=== PATIENT | male | born 1950 | race African-American/Black ===

== ENCOUNTER 2016-05-18 07:00 | Inpatient (IN) | payer OTHER ==
[~2016-05-18] VITALS: Ht 172.7 cm; Wt 94.3 kg
[2016-06-17] MEDS ORDERED: PANTOPRAZOLE SO40 M1 PO (16:03)
[2016-06-17] MEDS ORDERED: ASPIRIN EC81 M1 PO (16:03)
[2016-06-17] MEDS ORDERED: FOLIC ACID1 M1 PO (16:04)
[2016-06-17] MEDS ORDERED: TOPROL XL50 M1 PO (16:04)
[2016-06-17] MEDS ORDERED: CRESTOR20 M2 PO (16:04)
[2016-06-17] MEDS ORDERED: AMLODIPINE BESY10 M1 PO (16:04)
[2016-06-22] MEDS ORDERED: TRAMADOL HCL50 M1 PO (09:46)
--- NOTE | 2016-06-22 14:03 | Admission Core Measures ---
Admission Meds I reviewed the following Meds: Current Medications Sig/Te Start time Last Medication Dose Stop Time Status Admin Cefazolin Sodium 2,000 MG ONCE 06/22 0000 NR (Kefzol-Ancef Inj) 06/22 2419 Acute Coronary Syndrome Inclusion Criteria ACS Diagnosis No Inpatient Core Measures LDL Reminder: If No, please order W/I first 24hr of stay Congestive Heart Failure Inclusion Criteria CHF Diagnosis No Cerebrovascular accident Inclusion Criteria CVA/TIA Diagnosis No Inpatient Core Measures Bedside Swallow Eval Reminder: If BSE failed, place ST order Antithrombotic Reminder: Order Antithrombotic Medication by end of day 2 Antithrombotic Reminder: Document Reason Antithrombotic Not ordered by end of day 2 AFIB/Flutter Reminder: If Present, add to problem list AFIB/Flutter Reminder: Order Anticoag Medication for pts with AFIB/Flutter Atherosclerosis Reminder: If Present, add to problem list LDL Reminder: If No, please order W/I first 24hr of stay PT Order Reminder: If No, please order Venous thromboembolism Inpatient Core Measures VTE Risk Factors: Age > 40, Obesity, Surgery [facility] prophylaxis d/t No contraindications No VTE Pharm Prophylaxis d/t No contraindications Inclusion Criteria - Per Current guidelines, there needs to be overlap - treatment for the first 5 days of Warfarin therapy. - Parenteral Anticoagulation (IV or SC) needs to be - given along with Warfarin therapy. VTE Diagnosis No VTE Type NONE VTE Confirmed by (Test) NONE Problem List As ranked by this Provider includes Assessment & Plan 1. Status post total left knee replacement HOME MEDS Home Med List Amlodipine Besylate 10 MG TABLET 1 TAB PO DAILY HTN (Reported) Aspirin (Ecotrin*) 81 MG TABLET.DR 1 TAB PO DAILY PROPHO (Reported) Folic Acid 1 MG TABLET 1 TAB PO DAILY PROPHO (Reported) Pantoprazole Sodium 40 MG TABLET.DR 1 TAB PO DAILY GERD (Reported) Rosuvastatin Calcium (Crestor) 20 MG TABLET 1 TAB PO DAILY CHOLESTEROL ( Reported) Tramadol HCl 50 MG TABLET 1 TAB PO TWICE DAILY PRN PAIN (Reported)
[2016-06-22] MEDS ORDERED: MS CONTIN15 M2 PO (14:13)
[2016-06-22] MEDS ORDERED: MIRALAX17 G1 PO (14:13)
[2016-06-22] MEDS ORDERED: ASPIRIN EC325 M2 PO (14:13)
[2016-06-22] MEDS ORDERED: DILAUDID2 M1 PO (14:13)
[2016-06-22] MEDS ORDERED: COLACE100 M1 PO (14:13)
--- NOTE | 2016-06-22 14:38 | Patient Discharge Instructions ---
Discharge Instructions General Discharge Information You were seen/treated for: L knee DJD/osteoarthritis You had these procedures: Left total knee replacement Watch for these problems: Fever greater than 101, excessive drainage from the wound, inability to bear weight on the operative side Call Surgeon to remove: Marion Do not soak the wound: Yes Daily wet to dry dressings: No No bath, but you may shower: Yes Other wound care: Dry dressing change once daily starting postoperative day #2. You may shower as desired. No baths. No ointments of any kind. Ice as needed for comfort. Diet Continue normal diet: Yes Recommended Diet: Heart Healthy Activity Full Activity/No Limits: No Activity Self Limited: Yes Pounds, do NOT lift more than: 5 Activity Limited to: Weight bear as tolerated Other activity limits: Avoid strenuous activity. You may ambulate as desired with rolling walker and progressed per PT recommendations. No driving while using narcotics and until cleared by M.D. Acute Coronary Syndrome Inclusion Criteria At DC or during hospital stay patient has or had the following: ACS DIAGNOSIS No Discharge Core Measures Meds if any: Prescribed or Continued at Discharge Meds if any: NOT Prescribed or Continued at Discharge Congestive Heart Failure Inclusion Criteria At DC or during hospital stay patient has or had the following: CHF DIAGNOSIS No Discharge Core Measures Meds if any: Prescribed or Continued at Discharge Meds if any: NOT Prescribed or Continued at Discharge Cerebrovascular accident Inclusion Criteria At DC or during hospital stay patient has or had the following: CVA/TIA Diagnosis No Discharge Core Measures Meds if any: Prescribed or Continued at Discharge Meds if any: NOT Prescribed or Continued at Discharge Venous thromboembolism Inclusion Criteria VTE Diagnosis No VTE Type NONE VTE Confirmed by (Test) NONE Discharge Core Measures - Per Current guidelines, there needs to be overlap - treatment for the first 5 days of Warfarin therapy. - If discharged on Warfarin prior to 5 days of - overlap therapy, the patient will need to be - assessed for post discharge needs including - *Post discharge parental anticoagulation - *Warfarin and/or parental anticoagulation education - *Follow up date to check INR post discharge At least 5 days overlap therapy as Inpatient No Meds if any: Prescribed or Continued at Discharge Note: Overlap Therapy is Warfarin and Anticoagulant Meds if any: NOT Prescribed or Continued at Discharge
--- NOTE | 2016-06-22 14:43 | Surgical Discharge Summary ---
Visit Information Visit Dates Admission Date: 06/22/16 Discharge Date: 06/23/16 History of Present Illness Chief Complaint: Left knee pain, left knee DJD/osteoarthritis Medical History Cardiovascular: hypertension, hyperlipidemia Gastrointestinal: GERD Psychiatric: depression Isolation History: Standard Surgical History Pertinent Surgical History: knee replacement Review of Systems: See H&P Hospital Course Course Attending Physician: MONIQUE DALEY MD Primary Care Physician: CHUCKY ACEVEDO,German Hospital Course: Patient was admitted to [facility] for elective surgery on 06/22/2016 and underwent left total knee replacement. The patient tolerated the procedure well, without complications. The postoperative course remained uneventful. Pain was well controlled with oral pain medication, tolerated a regular diet, and voiding without difficulty. The patient was evaluated by physical therapy during admission, was deemed stable from a medical standpoint, and was discharged. Allergies: Coded Allergies: ceftriaxone (UNKNOWN 06/22/16) CEFTRIAXONE PER ONQ BALL ORDER SHEET OF 06/22/16 (SJS) acetaminophen (From VICODIN) (ALTERED MENTAL STATUS 06/17/16) hydrocodone (From VICODIN) (ALTERED MENTAL STATUS 06/17/16) oxycodone (From PERCOCET) (ALTERED MENTAL STATUS 06/17/16) Significant Procedures: Left total knee replacement on 06/22/[address] Daley Disposition Summary Disposition Principal Diagnosis: Left knee DJD/osteoarthritis Additional Diagnosis: Hypertension, hyperlipidemia, GERD, depression Discharge Disposition: home health services Discharge Instructions General Discharge Information Code Status: Full Code Patient's Diet: Heart healthy Patient's Activity: Avoid strenuous activity. You may ambulate as desired with rolling walker and progressed per PT recommendations. No driving while using narcotics and until cleared by M.D. Follow-Up Instructions/Appts: Incision: Dry dressing. May shower. No baths. No ointments of any kind. Ice as needed. Bowel regimen: Colace and or MiraLAX Weight-bearing as tolerated Follow-up with Dr. Daley in 6 weeks. Call office for fevers greater than 101.5, excessive drainage or inability to bear weight on operative extremity. Visiting nurse will remove rose. Medications at Discharge Discharge Medications: Stop taking the following medications: Aspirin (Ecotrin*) 81 MG TABLET. ORAL DAILY Continue taking these medications: Pantoprazole Sodium (Pantoprazole Sodium) 40 MG TABLET.DR 1 Tablet ORAL DAILY Comments: NOT GIVEN IN THE HOSPITAL Folic Acid (Folic Acid) 1 MG TABLET 1 Tablet ORAL DAILY Comments: Last Taken:06/23/16 Time:9:03AM Rosuvastatin Calcium (Crestor) 20 MG TABLET 1 Tablet ORAL DAILY Comments: NOT GIVEN IN THE HOSPITAL Amlodipine Besylate (Amlodipine Besylate) 10 MG TABLET 1 Tablet ORAL DAILY Comments: Last Taken:06/23/16 Time:9:04AM Metoprolol Succ XL (Toprol Xl) 50 MG TAB 1 Tablet ORAL DAILY Comments: Last Taken:06/23/16 Time:9:04AM Tramadol HCl (Tramadol HCl) 50 MG TABLET 1 Tablet ORAL Comments: NOT GIVEN IN THE HOSPITAL Start taking the following new medications: Morphine Sulfate (Ms Contin) 15 MG TABLET.ER 1 Tablet ORAL TWICE DAILY Qty = 12 No Refills Comments: NOT GIVEN IN THE HOSPITAL Hydromorphone HCl (Dilaudid) 2 MG TABLET 1-2 Tablet ORAL EVERY 4 HOURS NEEDED as needed for PAIN Qty = 36 No Refills Comments: Last Taken:06/23/16 Time:2:50 PM Docusate Sodium (Colace) 100 MG CAPSULE 1 Capsule ORAL TWICE DAILY Days = 7 No Refills Comments: Last Taken:06/23/16 Time:9:03AM Polyethylene Glycol 3350 (Miralax) 17 GRAM POWD.PACK 1 Packet ORAL DAILY Days = 7 No Refills Comments: Last Taken:06/23/16 Time:9:05AM Aspirin (Ecotrin*) 325 MG TABLET.DR 1 Tablet ORAL TWICE DAILY Days = 28 No Refills Comments: Last Taken:06/23/16 Time:9:03AM
--- NOTE | 2016-06-22 15:49 | RADIOLOGY REPORT ---
EXAMINATION: XR KNEE, LEFT CLINICAL INFORMATION: Status post left knee arthroplasty COMPARISON: None TECHNIQUE: Two views of the left knee. FINDINGS: Status post left knee arthroplasty. Prosthesis is well seated. Surgical drain and skin rose in place. Air within the soft tissues and in the joint space compatible with recent postoperative change. Visualized osseous structures are intact. IMPRESSION: Recent postoperative changes. No acute osseous abnormality.
[2016-06-22 16:31] VITALS: BP 148/90
--- NOTE | 2016-06-22 17:05 | Operative Report ---
Operative/Inv Procedure Report Surgery Date: 06/22/16 Name of Procedure: Left total knee replacement Pre-Operative Diagnosis: Primary left knee DJD Post-Operative Diagnosis: Same Estimated Blood Loss: 50ml to 100ml Surgeon/Bank Accountant: EDI ACEVEDO,MONIQUE Marie Anesthesia: block Operative/Procedure Note Note: Description of Procedure: The patient was taken to the operating room and positively identified. After induction of spinal anesthesia and administration of appropriate pre-operative antibiotics, the patient was positioned supine on the operating room table and all bony prominences were well padded. A well-padded pneumatic tourniquet was placed on the left upper thigh. After performing a surgical timeout, the left lower extremity was prepped and draped in the usual sterile fashion. After exsanguination with Esmarch the tourniquet was inflated to 250mm of mercury. A standard medial parapatellar approach was made to the knee. This was carried down through skin and subcutaneous tissue to the level of the fascia. Meticulous hemostasis was maintained with Bovie electrocautery. The extensor mechanism and patellar retinaculum were opened sharply and the patella was everted. The infrapatellar fat was resected in order to improve exposure. Osteophytes were trimmed from the patella and femoral condyles and the patella was re-everted and tucked laterally. A medial release was performed and the cruciate ligaments were resected. The tibia was then subluxed anteriorly. Utilizing the appropriate extra-medullary guide, the proximal tibia was trimmed perpendicular to the long axis of the tibial shaft. Attention was then turned to the femur. After opening the medullary canal, the distal femoral cut was made in 6 degrees of valgus utilizing the appropriate intra-medullary guide. The extension gap was checked and found to be appropriate. The femur was then sized and the remainder of the femoral cuts were made with a size 5 4-in-1 femoral cutting guide. The flexion gap was checked and found to be symmetric and appropriate. The knee was then trialed with a size 5 femoral component, a size 6 tibial component and a size 11 mm polyethylene insert. The patella was trimmed to accept an A 38 patella. This yielded excellent range of motion, stability and patellar tracking. All trial components were removed and the knee was copiously irrigated with sterile saline. All components were cemented into place with [place] Simplex cement. All the components were of the [employer]arit[employer] Triathlon knee system of the above stated sizes. The knee was again irrigated after cementation. The extensor mechanism and patellar retinaculum were repaired using interrupted #1 vicryl suture. The skin was re-approximated with 2-0 vicryl and closed with rose. A sterile dressing was applied, the tourniquet was deflated, the patient was awakened and taken to the recovery room in satisfactory condition.
--- NOTE | 2016-06-22 17:07 | PN- Orthopedic ---
Subjective Subjective: Postop check Pt is now POD # 0 s/p L TKR. He has no major complaints at this time. Pain is well controlled. He is tolerating sips. No nausea or vomiting. Patient reports some residual left lower extremity numbness. He also reported a dull substernal ache, that has almost completely resolved within 5 minutes upon placement into a more upright position. Objective Vital Signs and I&Os BP 122/68, HR 62, 96%RA, R 18, temp 97.0 Physical Exam: Gen.: Patient is awake and alert. No acute distress. Cardiac: Regular Pulmonary: Lungs are clear bilaterally. Extremities: Left lower extremity dressing is clean, dry, and intact. Despite reports of numbness, lower extremity sensation is intact bilaterally. Strength of dorsiflexion and plantar flexion are 4 out of 5 on the operative side. Assessment/Plan Assessment/Plan Patient is a 66-year-old male with a history of hypertension, hyperlipidemia, GERD, depression, who is now postoperative day #0 status post left total knee replacement. Plan: -PT consult for mobilization. WBAT with rolling walker. -Pain control with morphine for now. Po dilaudid when tolerating po. -Advance diet as tolerated. Heplock IV when tolerating adequate po. -Colace and miralax for bowel regimen. -ASA 325 bid for DVT ppx. Alps and Darian's as well. -Ancef x 2 doses for prophylaxis. -Home meds resumed, including b agustín. -Await void. -Monitor chest discomfort. Do not suspect cardiac origin as it is positional and improved within 5 minutes of upright position. Continue to monitor. EKG and troponin if it returns. -Plan for discharge most likely tomorrow morning. Core Measures/Miscellaneous Venous Thromboembolism VTE Risk Factors: Age > 40, Obesity, Surgery VTE Contraindications: No Contraindications VTE Diagnosis: No VTE Type: NONE VTE Confirmed by (Test): NONE Beta Agustín Is Beta Agustín a Home Med? Yes If Yes, Was This Ordered Today? Yes Antibiotics Is Patient on Antibiotics? Yes If Yes: prophylaxis
[2016-06-22 18:30] VITALS: BP 170/100
[2016-06-22 20:47] VITALS: BP 146/90
[2016-06-22 21:30] VITALS: BP 116/64
--- NOTE | 2016-06-22 21:51 | NUR ---
WHEN PATIENT WAS SITTING UP ON THE SIDE OF THE BED TO URINATE IN THE URINAL HE STATES THAT HE STARTED TO FEEL WARM AND FUNNY AND SLIDE HIMESELF ONTO THE FLOOR. RAPID RESPONSE WAS CALLED. PATIENT APPEARED SWEATY. VITAL SIGNS BP: 116/64, HR: 64, RR: 18 O2SAT: 98% PATIENT IS ALERT AND ORIENTED X 3 PATIENT STATES HAVING NO PAIN. A BOLUS OF FLUID GIVEN. EKG DONE. BED ALARM ON. CALL SU IN REACH. MOD NOTIFIED.
--- NOTE | 2016-06-22 22:07 | Event Note ---
Event Note Event Note: RAPID RESPONSE Rapid response called by floor nurse. At time of arrival, patient sitting on floor on the right side of the bed. He is diaphoretic, though alert awake and oriented and in no acute distress. He was sitting on the side of the bed straining to urinate into the urinal when he felt hot and woozy, and slowly slid down the side of the bed onto the floor. He denies hitting his surgical leg denies head injury, denies loss of consciousness. No chest pain shortness of breath or palpitations at the time. Of note approximately 2 hours ago his blood pressure was 170/100 and his home dose of antihypertensive was given. Patient was brought to his feet and put back in bed. Blood pressure remained stable at 110/71 with HR 60. Diaphoresis improved. Physical exam GEN: A&OX3, appropriate CARD: S1 and S2 regular rate and rhythm EXT: Left leg and clean dry and intact surgical dressing. Hemovac in place with serosanguineous drainage. On-Q pump in place. Sensation intact bilateral feet. Positive plantar and dorsiflexion bilaterally, palpable DP pulse left foot Vital signs at time of my arrival: BP 116/64, HR 64, temp 97.2, 98% on room air , fingerstick 226. EKG was performed: Normal sinus rhythm at 70. Troponins and other labs are pending. A/P: Vasovagal response, now stable. -1L NS bolus - check trop, labs - bed alarm - cont IVF - D/W Dr. Young, he is aware.
[2016-06-22 22:52] LABS: ABSOLUTE BASOPHIL COUNT 0 /CUMM (0.0-0.2); ABSOLUTE EOSINOPHIL COUNT 0 /CUMM (0.0-0.7); ABSOLUTE GRANULOCYTE CT 7.4 /CUMM (1.4-6.5); ABSOLUTE LYMPH COUNT 0.7 /CUMM (1.2-3.4); ABSOLUTE MONOCYTE COUNT 0.3 /CUMM (0.10-0.60); BASOPHIL % 0.2 % (0.0-2.0); EOSINOPHIL % 0.2 % (0-5); HEMATOCRIT 42.5 % (42-52); MEAN CORPUSCULAR HGB 30.7 PG (27.0-31.0); MEAN CORPUSCULAR HGB CONC 33.3 G/DL (33.0-37.0); MEAN PLATELET VOLUME 7.1 FL (7.4-10.4); PLATELET COUNT 135 /CUMM (130-400); RBC DISTRIBUTION WIDTH 14.6 % (11.5-14.5); RED BLOOD CELL CT 4.62 /CUMM (4.70-6.10); WHITE BLOOD CELL COUNT 8.4 /CUMM (4.8-10.8)
[2016-06-22 23:37] VITALS: BP 123/81
[2016-06-23 04:16] VITALS: BP 140/88
[2016-06-23 08:24] VITALS: BP 145/81
--- NOTE | 2016-06-23 09:38 | PN- Orthopedic ---
Subjective Subjective: The patient was seen this morning postoperatively day #1. He reports that his pain is under adequate control has no other complaints at the current time. He is eager to work with physical therapy this morning and possibly be discharged later today. Objective Vital Signs and I&Os Vital Signs Date Time Temp Pulse Resp B/P B/P Pulse O2 O2 Flow FiO2 Mean Ox Delivery Rate 06/23 0904 64 145/81 / 0904 64 145/81 / 0824 98.1 64 18 145/81 98 Room Air 06/23 0416 98.2 78 18 140/88 97 Room Air 06/22 2337 97.4 72 20 123/81 96 Room Air 06/22 2130 98.0 64 18 116/64 98 Room Air 06/22 2047 98.2 72 20 146/90 97 Room Air 06/22 1923 75 170/100 05/ 1830 97.0 75 20 170/100 95 Room Air 06/22 1631 98.7 62 20 148/90 94 Room Air Intake & Output 06/23 1600 06/23 0800 16 0000 / 1600 06/22 0800 05/ 0000 Intake Total 840 400 Output Total 1650 500 Balance -810 -100 Intake, IV 600 Intake, Oral 240 400 Output, 300 500 Drainage Output, Urine 1350 Patient 208 lb Weight Physical Exam: Gen.: Alert and in no obvious distress Skin: Warm and dry Extremity: Bilateral lower extremities warm without calf tenderness or significant edema. Gross motor and sensory are intact. Left knee surgical dressing is clean, dry, and intact. There is an On-Q pain pump and Hemovac in place. Assessment/Plan Assessment/Plan Assessment: 66-year-old male status post left total knee arthroplasty postoperative day 1. The patient is progressing as expected and his pain is under adequate control. Plan: Out of bed with physical therapy Continue current pain regiment GI and DVT prophylaxis Hep-Lock IV fluids Remove Hemovac drain Follow-up morning laboratory studies Possible discharge later today if cleared with physical therapy Core Measures/Miscellaneous Venous Thromboembolism VTE Risk Factors: Age > 40, Obesity, Surgery VTE Contraindications: No Contraindications VTE Diagnosis: No VTE Type: NONE VTE Confirmed by (Test): NONE Beta Cristian Is Beta Cristian a Home Med? Yes If Yes, Was This Ordered Today? Yes Antibiotics Is Patient on Antibiotics? No
[2016-06-23 12:00] VITALS: BP 124/78
== END 2016-06-23 16:47 | disposition home health service (06) | DRG 470 ==
LOC: SDA 06-22 01:57 → 2NB 06-22 01:57 → SDA 06-22 07:00 → CANRESERV 06-22 15:51 → ENRESERV 06-22 15:51 → 2NB 06-22 16:35 → ENPENDDIS 06-23 09:47 → 2NB 06-23 16:47
PROVIDERS: Ophthalmology; ADMIT Orthopaedic Surgery
PROC: 0SRD0J9 Replacement of Left Knee Joint with Synthetic Substitute, Cemented, Open Approach (ICD-10-PCS; principal; 2016-06-23)
DX: M17.12 Unilateral primary osteoarthritis, left knee (principal); I10 Essential (primary) hypertension; E66.9 Obesity, unspecified; Z68.33 Body mass index [BMI] 33.0-33.9, adult; E78.5 Hyperlipidemia, unspecified; I25.10 Atherosclerotic heart disease of native coronary artery without angina pectoris; Z86.73 Personal history of transient ischemic attack (TIA), and cerebral infarction without residual deficits; K21.9 Gastro-esophageal reflux disease without esophagitis; Z95.2 Presence of prosthetic heart valve; Z79.82 Long term (current) use of aspirin
CPT/HCPCS: 2NBSP; 73560-LT; 82436; 88305; 93005; 93010; 97110-GO; 97116-GO; 97161-GP; 97530-GO; C1713; J0690; J2405; J2795; J3490; J7042